=== PATIENT | female | born 1965 | race Caucasian/White ===

== ENCOUNTER 2018-08-25 02:26 | Emergency (ER) | payer BC ==
[2018-08-25 02:38] VITALS: BP 122/85
[2018-08-25] MEDS ORDERED: Sodium Chloride 0.9% 1,000 ML IV ONE (02:49)
[2018-08-25] MEDS ORDERED: Sodium Chloride 0.9% 10 ML Syringe FLUSH PRN (02:49)
[2018-08-25] MEDS ORDERED: Ketorolac 30 MG/ML SDV IVPUSH ONE (02:49)
--- NOTE | 2018-08-25 02:50 | EDM.PDOC ---
ED HPI GENERAL MEDICAL PROBLEM - General Chief Complaint: Genitourinary Problem Stated Complaint: KIDNEY INFECTION [id number] Time Seen by Provider: 08/25/18 02:40 Source of Information: Reports: Patient, RN, RN Notes Reviewed History Limitations: Reports: No Limitations - History of Present Illness INITIAL COMMENTS - FREE TEXT/NARRATIVE: Pt to ER with c/o left flank, back pain, LLQ pain. She admits to urinary symptoms of feeling of needing to urinate and not being able to go. She states she has had kidney stones in the past and this feels different. She also states she has had dark, "thick" urine in the past weeks. She denies fever or chills. Has had nausea without vomiting, but none at this time. Last BM yesterday, normal for her, yet she does feel some pressure as though may need to have a BM again. Onset: Gradual Duration: Getting Worse Location: Reports: Abdomen, Back Quality: Reports: Ache, Pressure, Throbbing Severity: Moderate Improves with: Reports: None Worsens with: Reports: None Associated Symptoms: Reports: Other (urinary urgency) Pelvic Pain Score (Numeric/FACES): 8 - Related Data Allergies Allergy/AdvReac Type Severity Reaction Status Date / Time Penicillins Allergy Anaphylactic Verified 08/25/18 02:30 Shock Sulfa (Sulfonamide Allergy Hives Verified 08/25/18 02:30 Antibiotics) Home Meds: Home Meds L.acidoph,Paracasei, B.lactis [Probiotic] 1 tab PO DAILY 12/27/15 [History] Multivitamin [Multivitamins] 1 cap PO DAILY 12/27/15 [History] Sodium Chloride 0.65% [[place] Nasal [place]] 1 spray JESSICA ASDIRECTED PRN 12/27/15 [ History] Sertraline [Zoloft] 100 mg PO DAILY 08/25/18 [History] Past Medical History Cardiovascular History: Reports: None Respiratory History: Reports: None Other Respiratory History: athletic induced asthma Gastrointestinal History: Reports: None Genitourinary History: Reports: Other (See Below) Other Genitourinary History: History of hematuria. 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 Hx of post depression Musculoskeletal History: Reports: None Neurological History: Reports: Migraines Psychiatric History: Reports: None Other Psychiatric History: Hx of post depression Endocrine/Metabolic History: Reports: None Hematologic History: Reports: None Immunologic History: Reports: None Oncologic (Cancer) History: Reports: None Dermatologic History: Reports: None Other Dermatologic History: MRSA infection (right arm boil and left eye) - Infectious Disease History Infectious Disease History: Reports: Chicken Pox, Shingles - Past Surgical History Head Surgeries/Procedures: Reports: None HEENT Surgical History: Reports: Tonsillectomy, Other (See Below) Musculoskeletal Surgical History: Reports: Other (See Below) Other Musculoskeletal Surgeries/Procedures:: 3 surgerys on left foot Social & Family History - Family History Family Medical History: Noncontributory - Tobacco Use Smoking Status *Q: Current Every Day Smoker Years of Tobacco use: 30 Packs/Tins Daily: 0.5 - Caffeine Use Caffeine Use: Reports: Coffee - Recreational Drug Use Recreational Drug Use: No ED ROS GENERAL - Review of Systems Review Of Systems: ROS reveals no pertinent complaints other than HPI. ED EXAM, RENAL/ - Physical Exam Exam: See Below Exam Limited By: No Limitations General Appearance: Alert, WD/WN, Moderate Distress Eye Exam: Bilateral Eye: EOMI, Normal Inspection Ears: Normal External Exam, Hearing Grossly Normal Nose: Normal Inspection Throat/Mouth: Normal Inspection, Normal Voice, No Airway Compromise Head: Atraumatic, Normocephalic Neck: Normal Inspection, Supple, Non-Tender, Full Range of Motion Respiratory/Chest: No Respiratory Distress, Lungs Clear, Normal Breath Sounds, No Accessory Muscle Use, Chest Non-Tender Cardiovascular: Normal Peripheral Pulses, Regular Rate, Rhythm, No Edema, No Gallop, No JVD, No Murmur, No Rub GI/Abdominal: Normal Bowel Sounds, Soft, Tender (LLQ, RLQ, left flank) (Female) Exam: Deferred Rectal (Female) Exam: Deferred Back Exam: Normal Inspection, Full Range of Motion, CVA Tenderness (L) Extremities: Normal Inspection, Normal Range of Motion, Non-Tender, No Pedal Edema, Normal Capillary Refill Neurological: Alert, Oriented, CN II-XII Intact, Normal Cognition, Normal Gait, Normal Reflexes, No Motor/Sensory Deficits Psychiatric: Normal Affect, Normal Mood Skin Exam: Warm, Dry, Intact, Normal Color, No Rash Lymphatic: No Adenopathy Course - Vital Signs Last Recorded V/S: Last Vital Signs Temp 97.8 F 08/25/18 02:36 Pulse 103 H 08/25/18 02:36 Resp 18 08/25/18 02:36 BP 122/85 08/25/18 02:36 Pulse Ox 99 08/25/18 02:36 - Orders/Labs/Meds Orders: Active Orders 24 hr Category Date Time Status Peripheral IV Care [RC] . DIRECTED Care 08/25/18 02:49 Active Abdomen Pelvis wo Cont [CT] Urgent Exams 08/25/18 03:09 Ordered CULTURE URINE [RM] Routine Lab 08/25/18 02:41 Received Peripheral IV Insertion Adult [OM.PC] Stat Oth 08/25/18 02:49 Ordered Labs: Laboratory Tests 08/25/18 08/25/18 08/25/18 Range/Units 02:41 02:53 02:53 WBC 10.4 H (5.0-10.0) 10^3/uL RBC 4.40 (4.2-5.4) 10^6/uL Hgb 13.8 (12.0-16.0) g/dL Hct 40.5 (37.0-47.0) % MCV 92.0 (80-100) fL MCH 31.4 (27.0-34.0) pg MCHC 34.1 (33.0-35.0) g/dL Plt Count 295 (150-450) 10^3/uL Neut % (Auto) 59.7 (42.2-75.2) % Lymph % (Auto) 27.9 (20.5-50.1) % [place] % (Auto) 10.1 H (2-8) % Eos % (Auto) 1.8 (1.0-3.0) % Baso % (Auto) 0.5 (0.0-1.0) % Sodium 137 (135-145) mmol/L Potassium 3.8 (3.6-5.0) mmol/L Chloride 102 (101-111) mmol/L Carbon Dioxide 24.0 (21.0-31.0) mmol/L Anion Gap 14.8 BUN 16 (7-18) mg/dL Creatinine 0.9 (0.6-1.3) mg/dL Est Cr Clr Drug Dosing 62.42 mL/min Estimated GFR (MDRD) > 60 BUN/Creatinine Ratio 17.77 Glucose 114 H (74-105) mg/dL Calcium 9.5 (8.4-10.2) mg/dl Total Bilirubin 0.5 (0.2-1.0) mg/dL AST 22 (10-42) IU/L ALT 18 (10-60) IU/L Alkaline Phosphatase 60 (42-121) IU/L Total Protein 7.5 (6.7-8.2) g/dl Albumin 4.4 (3.2-5.5) g/dl Globulin 3.1 Albumin/Globulin Ratio 1.42 Urine Color Yellow (YELLOW) Urine Appearance Cloudy (CLEAR) Urine pH 5.5 (5.0-9.0) Ur Specific [place] 1.020 (1.005-1.030) Urine Protein Negative (NEGATIVE) Urine Glucose (UA) Negative (NEGATIVE) Urine Ketones Negative (NEGATIVE) Urine Occult Blood Large H (NEGATIVE) Urine Nitrite Negative (NEGATIVE) Urine Bilirubin Negative (NEGATIVE) Urine Urobilinogen 0.2 (0.2-1.0) mg/dL Ur Leukocyte Esterase Trace H (NEGATIVE) Urine RBC >100 H /HPF Urine WBC 10-20 H (0-5/HPF) /HPF Ur Epithelial Cells Few /HPF Urine Bacteria Few (0-FEW/HPF) /HPF Urine Mucus Few H /LPF Meds: Medications Discontinued Medications Generic Name Dose Route Start Last Admin Trade Name Freq PRN Reason Stop Dose Admin Sodium Chloride 1,000 mls @ 999 mls/hr 08/25/18 02:49 08/25/18 02:55 Normal Saline IV 08/25/18 03:49 999 mls/hr .BOLUS ONE Administration Ketorolac Tromethamine 30 mg 08/25/18 02:49 08/25/18 02:56 Toradol IVPUSH 08/25/18 02:50 30 mg ONETIME ONE Administration Sodium Chloride 10 ml 08/25/18 02:49 08/25/18 02:58 Saline Flush FLUSH 10 ml ASDIRECTED PRN Administration Keep Vein Open - Radiology Interpretation Free Text/Narrative:: CT Abdomen/Pelvis wo contrast: FINDINGS: Lower thorax: No acute findings. ABDOMEN: Liver: Normal. No mass. Gallbladder and bile ducts: Normal. No calcified stones. No ductal dilation. Pancreas: Normal. No ductal dilation. Spleen: Normal. No splenomegaly. Adrenals: Normal. No mass. Kidneys and ureters: Hydronephrosis of the left kidney as well as hydroureter secondary to a 4 mm stone at the left ureterovesical junction Bilateral nonobstructing renal calculi measuring 2-3 mm each Stomach and bowel: Normal. No obstruction. No mucosal thickening. Appendix: No evidence of appendicitis. PELVIS: Bladder: Unremarkable as visualized. Reproductive: Unremarkable as visualized. ABDOMEN and PELVIS: Intraperitoneal space: Normal. No free air. No significant fluid collection. Bones/joints: No acute fracture. No dislocation. Soft tissues: Unremarkable. Vasculature: Normal. No abdominal aortic aneurysm. Lymph nodes: Normal. No enlarged lymph nodes. IMPRESSION: 1. Hydronephrosis of the left kidney as well as hydroureter secondary to a 4 mm stone at the left ureterovesical junction . This is a new finding since the prior study dated 2. Bilateral nonobstructing renal calculi measuring 2-3 mm each Thank you for allowing us to participate in the care of your patient. Dictated and Authenticated by: Mina Mares MD 08/25/2018 3:44 AM Central Time ([place] & [place]) See rad report Departure - Departure Time of Disposition: 04:00 Disposition: Home, Self-Care 01 Condition: Fair Clinical Impression: Nephrolithiasis - Discharge Information *PRESCRIPTION DRUG MONITORING PROGRAM REVIEWED*: No *COPY OF PRESCRIPTION DRUG MONITORING REPORT IN PATIENT NOEL: No Instructions: Renal Colic, [id number], Kidney Stones, [id number]-Coll, Dietary Guidelines to Help Prevent Kidney Stones Forms: ED Department Discharge Additional Instructions: Drink plenty of water May use Ibuprofen as directed for pain Return to the ER if you have an increase in pain again Follow up with your primary care facility for possible urology consult - My Orders Last 24 Hours: My Active Orders 08/25/18 02:41 CULTURE URINE [RM] Routine 08/25/18 02:49 Peripheral IV Care [RC] . DIRECTED Peripheral IV Insertion Adult [OM.PC] Stat 08/25/18 03:09 Abdomen Pelvis wo Cont [CT] Urgent - Assessment/Plan Last 24 Hours: My Active Orders 08/25/18 02:41 CULTURE URINE [RM] Routine 08/25/18 02:49 Peripheral IV Care [RC] . DIRECTED Peripheral IV Insertion Adult [OM.PC] Stat 08/25/18 03:09 Abdomen Pelvis wo Cont [CT] Urgent
[2018-08-25 03:18] LABS: ANION GAP 14.8; CHLORIDE,CL 102 mmol/L (101-111); SODIUM,NA 137 mmol/L (135-145)
== END 2018-08-25 04:10 | disposition home or self-care (01) ==
LOC: DL.ED 02:26
DX: N13.2 Hydronephrosis with renal and ureteral calculous obstruction (principal); F17.210 Nicotine dependence, cigarettes, uncomplicated; Z88.0 Allergy status to penicillin; Z88.2 Allergy status to sulfonamides; Z79.899 Other long term (current) drug therapy
CPT/HCPCS: 36415; 74176; 80053; 81001; 85025; 87086; 96361; 96374; 99284; J1885; J7030

== ENCOUNTER 2019-09-14 08:09 | Emergency (ER) | payer BC ==
[2019-09-14 08:32] VITALS: BP 120/81; PULSE 91
--- NOTE | 2019-09-14 08:37 | EDM.PDOC ---
<Kenyon Villela - Last Filed: 09/14/19 08:32> ED HPI GENERAL MEDICAL PROBLEM - General Chief Complaint: Abdominal Pain Stated Complaint: SEVERE STOMACH PAIN Time Seen by Provider: 09/14/19 08:32 Source of Information: Reports: Patient, RN, RN Notes Reviewed History Limitations: Reports: No Limitations - History of Present Illness INITIAL COMMENTS - FREE TEXT/NARRATIVE: Pt here with severe lower abdominal pain and N/V that began around 4 am this morning. Pt states she had loose stools for the last 4 days prior to the N/V. Pt denies diarrhea at this time. Pt with history of diverticulosis. States kidney stone history as well. Abd pain 10/10 in lower quadrants. Pt denies burning with urination. Patient has not had this pain before and states it is different from the pain she had with a kidney stone and she has never had a flare of diverticulitis before. Patient is in quite a bit of distress and sitting on the edge of the bed bending over from the pain. Onset: Today Duration: Constant Location: Reports: Abdomen, Pelvis Quality: Reports: Stabbing Severity: Severe Improves with: Reports: None Worsens with: Reports: None Associated Symptoms: Reports: Fever/Chills, Loss of Appetite, Nausea/Vomiting. 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: Other (see below) Other Treatments GAS APPLIANCE REPAIRER: Rolaids at 0300 Lower Abdomen Pain Score (Numeric/FACES): 10 - Related Data Allergies Allergy/AdvReac Type Severity Reaction Status Date / Time Penicillins Allergy Anaphylactic Verified 08/25/18 02:30 Shock Sulfa (Sulfonamide Allergy Hives Verified 08/25/18 02:30 Antibiotics) Home Meds: Home Meds L.acidoph,Paracasei, B.lactis [Probiotic] 1 tab PO DAILY 12/27/15 [History] Multivitamin [Multivitamins] 1 cap PO DAILY 12/27/15 [History] Sodium Chloride 0.65% [[place] Nasal [place]] 1 spray JESSICA ASDIRECTED PRN 12/27/15 [ History] Sertraline [Zoloft] 100 mg PO DAILY 08/25/18 [History] Past Medical History Cardiovascular History: Reports: None Respiratory History: Reports: None Other Respiratory History: athletic induced asthma Gastrointestinal History: Reports: None Genitourinary History: Reports: Other (See Below) Other Genitourinary History: History of hematuria. 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 Hx of post depression Musculoskeletal History: Reports: None Neurological History: Reports: Migraines Psychiatric History: Reports: None Other Psychiatric History: Hx of post depression Endocrine/Metabolic History: Reports: None Hematologic History: Reports: None Immunologic History: Reports: None Oncologic (Cancer) History: Reports: None Dermatologic History: Reports: None Other Dermatologic History: MRSA infection (right arm boil and left eye) - Infectious Disease History Infectious Disease History: Reports: Chicken Pox, Shingles - Past Surgical History Head Surgeries/Procedures: Reports: None HEENT Surgical History: Reports: Tonsillectomy, Other (See Below) Musculoskeletal Surgical History: Reports: Other (See Below) Other Musculoskeletal Surgeries/Procedures:: 3 surgerys on left foot Social & Family History - Family History Family Medical History: Noncontributory - Caffeine Use Caffeine Use: Reports: Coffee ED ROS GENERAL - Review of Systems Review Of Systems: See Below Constitutional: Reports: Decreased Appetite. Denies: Fever, Chills HEENT: Reports: No Symptoms Respiratory: Reports: No Symptoms Cardiovascular: Reports: No Symptoms Endocrine: Reports: No Symptoms GI/Abdominal: Reports: Abdominal Pain (lower quadrants), Diarrhea, Decreased Appetite, Nausea, Vomiting. Denies: Distension : Reports: No Symptoms Musculoskeletal: Reports: No Symptoms Skin: Reports: No Symptoms Neurological: Reports: No Symptoms Psychiatric: Reports: No Symptoms Hematologic/Lymphatic: Reports: No Symptoms Immunologic: Reports: No Symptoms ED EXAM, GI/ABD - Physical Exam Exam: See Below Exam Limited By: No Limitations General Appearance: Alert, Anxious, Moderate Distress Respiratory/Chest: No Respiratory Distress, Lungs Clear, Normal Breath Sounds, No Accessory Muscle Use, Chest Non-Tender Cardiovascular: Normal Peripheral Pulses, Regular Rate, Rhythm, No Edema, No Gallop, No JVD, No Murmur, No Rub GI/Abdominal Exam: Soft, No Distention, Guarding, Tender, Abnormal Bowel Sounds (hyperactive). No: Distended (Female) Exam: Deferred Rectal (Female) Exam: Deferred Back Exam: Normal Inspection, Full Range of Motion, NT Course - Vital Signs Last Recorded V/S: Last Vital Signs Temp 36.6 C 09/14/19 08:25 Pulse 91 09/14/19 08:25 Resp 18 09/14/19 08:25 BP 120/81 09/14/19 08:25 Pulse Ox 100 09/14/19 08:25 - Orders/Labs/Meds Orders: Active Orders 24 hr Category Date Time Status Abdomen Pelvis w Cont [CT] Urgent Exams 09/14/19 09:22 Ordered HYDROmorphone [Dilaudid] Med 09/14/19 11:04 Once 0.5 mg IVPUSH ONETIME ONE Labs: Laboratory Tests 09/14/19 09/14/19 09/14/19 Range/Units 08:28 08:35 08:35 WBC 13.3 H (5.0-10.0) 10^3/uL RBC 4.55 (4.2-5.4) 10^6/uL Hgb 14.3 (12.0-16.0) g/dL Hct 42.3 (37.0-47.0) % MCV 93.0 (80-100) fL MCH 31.4 (27.0-34.0) pg MCHC 33.8 (33.0-35.0) g/dL Plt Count 313 (150-450) 10^3/uL Neut % (Auto) 72.5 (42.2-75.2) % Lymph % (Auto) 17.7 L (20.5-50.1) % [place] % (Auto) 7.9 (2-8) % Eos % (Auto) 1.4 (1.0-3.0) % Baso % (Auto) 0.5 (0.0-1.0) % Sodium 138 (135-145) mmol/L Potassium 4.1 (3.6-5.0) mmol/L Chloride 103 (101-111) mmol/L Carbon Dioxide 23.0 (21.0-31.0) mmol/L Anion Gap 16.1 BUN 15 (7-18) mg/dL Creatinine 1.0 (0.6-1.3) mg/dL Est Cr Clr Drug Dosing 55.54 mL/min Estimated GFR (MDRD) 58 BUN/Creatinine Ratio 15.00 Glucose 111 H (74-105) mg/dL Calcium 9.6 (8.4-10.2) mg/dl Total Bilirubin 0.4 (0.2-1.0) mg/dL AST 18 (10-42) IU/L ALT 16 (10-60) IU/L Alkaline Phosphatase 67 (42-121) IU/L Total Protein 7.4 (6.7-8.2) g/dl Albumin 4.5 (3.2-5.5) g/dl Globulin 2.9 Albumin/Globulin Ratio 1.55 Amylase 41 (28-100) U/L Lipase 35 (22-51) U/L Urine Color Yellow (YELLOW) Urine Appearance Slightly cloudy (CLEAR) Urine pH 7.0 (5.0-9.0) Ur Specific [place] 1.025 (1.005-1.030) Urine Protein Negative (NEGATIVE) Urine Glucose (UA) Negative (NEGATIVE) Urine Ketones Negative (NEGATIVE) Urine Occult Blood Moderate H (NEGATIVE) Urine Nitrite Negative (NEGATIVE) Urine Bilirubin Negative (NEGATIVE) Urine Urobilinogen 0.2 (0.2-1.0) mg/dL Ur Leukocyte Esterase Negative (NEGATIVE) Urine RBC 5-10 H /HPF Urine WBC 0-5 (0-5/HPF) /HPF Ur Epithelial Cells Few (NOT SEEN) /HPF Urine Bacteria Few (0-FEW/HPF) /HPF Urine Mucus Rare (NOT SEEN) /LPF Meds: Medications Discontinued Medications Generic Name Dose Route Start Last Admin Trade Name Freq PRN Reason Stop Dose Admin Hydromorphone HCl 0.5 mg 09/14/19 09:15 09/14/19 09:20 Dilaudid IVPUSH 09/14/19 09:16 0.5 mg ONETIME ONE Administration Sodium Chloride 1,000 mls @ 999 mls/hr 09/14/19 08:28 09/14/19 08:40 Normal Saline IV 09/14/19 09:28 999 mls/hr .BOLUS ONE Administration Iopamidol 100 ml 09/14/19 09:22 09/14/19 09:37 Isovue-300 (61%) IVPUSH 09/14/19 09:23 100 ml ONETIME ONE Administration Morphine Sulfate 2 mg 09/14/19 08:28 09/14/19 08:39 Morphine IVPUSH 09/14/19 08:29 2 mg ONETIME ONE Administration Morphine Sulfate 2 mg 09/14/19 08:52 09/14/19 09:04 Morphine IVPUSH 09/14/19 08:53 2 mg ONETIME ONE Administration Ondansetron HCl 4 mg 09/14/19 08:30 09/14/19 08:39 Zofran IVPUSH 09/14/19 08:31 4 mg ONETIME ONE Administration Departure - Departure Disposition: DC/Tfer to [facility] 02 Clinical Impression: Acute appendicitis Qualifiers: Acute appendicitis type: with localized peritonitis Appendicitis gangrene presence: unspecified whether gangrene present Appendicitis perforation presence : without perforation Appendicitis abscess presence: unspecified whether abscess present Qualified Code(s): K35.30 - Acute appendicitis with localized peritonitis, without perforation or gangrene - Discharge Information Forms: Interfacility Transfer EMTALA Care Plan Goals: Discussed the patient's history, examination, lab and CT results with Dr. Gary (through [facility]). Dr. Gary accepted the patient for continued evaluation and further management at [facility] in [place]. The patient will be transported by [facility]. Sepsis Event Note - Evaluation Sepsis Screening Result: No Definite Risk - Focused Exam Vital Signs: Vital Signs Temp Pulse Resp BP Pulse Ox 09/14/19 08:25 36.6 C 91 18 120/81 100 Date Exam was Performed: 09/14/19 Time Exam was Performed: 08:32 - My Orders Last 24 Hours: My Active Orders 09/14/19 09:22 Abdomen Pelvis w Cont [CT] Urgent 09/14/19 11:04 HYDROmorphone [Dilaudid] 0.5 mg IVPUSH ONETIME ONE - Assessment/Plan Last 24 Hours: My Active Orders 09/14/19 09:22 Abdomen Pelvis w Cont [CT] Urgent 09/14/19 11:04 HYDROmorphone [Dilaudid] 0.5 mg IVPUSH ONETIME ONE <Rainer Cedillo M - Last Filed: 09/14/19 11:09> Course - Re-Assessments/Exams Free Text/Narrative Re-Assessment/Exam: 09/14/19 11:05 I have examined the patient. I have discussed findings and treatment plan with the student. I agree with the assessment and plan in the following student's note. Departure - Departure Time of Disposition: 11:05 Condition: Fair - Discharge Information *PRESCRIPTION DRUG MONITORING PROGRAM REVIEWED*: Not Applicable *COPY OF PRESCRIPTION DRUG MONITORING REPORT IN PATIENT NOEL: Not Applicable Sepsis Event Note - Focused Exam Date Exam was Performed: 09/14/19 Time Exam was Performed: 11:04
[2019-09-14] MEDS: Morphine 2 MG/ML Syringe IVPUSH ONE ×2 (08:39→09:04)
[2019-09-14] MEDS: Ondansetron 4 MG/2 ML SDV IVPUSH ONE (08:39)
[2019-09-14] MEDS: Sodium Chloride 0.9% 1,000 ML IV ONE (08:40)
[2019-09-14 09:12] LABS: ANION GAP 16.1
[2019-09-14] MEDS: HYDROmorphone 0.5 MG/0.5 ML Syringe IVPUSH ONE ×2 (09:20→11:26)
[2019-09-14] MEDS: Iopamidol 612 MG/ML 100 ML Bottle IVPUSH ONE (09:37)
== END 2019-09-14 11:51 ==
LOC: DL.ED 08:09
DX: K35.30 Acute appendicitis with localized peritonitis, without perforation or gangrene (principal); Z88.0 Allergy status to penicillin; Z88.2 Allergy status to sulfonamides
CPT/HCPCS: 36415; 74177; 80053; 81001; 82150; 83690; 85025; 96361; 96374; 96375; 96376; 99285-25; J1170; J2270; J2405; J7030; Q9967

== ENCOUNTER 2020-12-24 11:50 | Emergency (ER) | payer BC ==
[2020-12-24 12:12] VITALS: BP 141/78; PULSE 91
[2020-12-24] MEDS ORDERED: Ketorolac 30 MG/ML SDV IVPUSH ONE (12:20)
[2020-12-24] MEDS ORDERED: Ondansetron 4 MG/2 ML SDV IV ONE (12:20)
[2020-12-24] MEDS: Sodium Chloride 0.9% 10 ML Syringe FLUSH PRN ×2 (12:29→12:35)
--- NOTE | 2020-12-24 12:40 | EDM.PDOC ---
"ED HPI GENERAL MEDICAL PROBLEM - General Chief Complaint: Genitourinary Problem Stated Complaint: KIDNEY STONES Time Seen by Provider: 12/24/20 12:10 Source of Information: Reports: Patient, RN, RN Notes Reviewed History Limitations: Reports: No Limitations - History of Present Illness INITIAL COMMENTS - FREE TEXT/NARRATIVE: Pt presents to ER from home by POV with c/o sudden onset of right flank pain last week. The pain was severe, but only lasted a few hours, then went away without intervention. Since the onset, the pain has returned several times and has been severe enough to cause nausea and vomiting at times. Yesterday the pain began radiating to the right lower abdomen and groin area. Pt has noticed occasional blood in her urine over the past few days. Pt rates the pain 7/10 currently. Nothing alleviates or aggravates the pain. Pt states this feels similar to a kidney stone that she had a few years ago on the left side. Onset: Sudden Duration: Intermittent, Recurring Location: Reports: Abdomen, Back Quality: Reports: Ache Severity: Severe Improves with: Reports: None Worsens with: Reports: None Associated Symptoms: Reports: No Other Symptoms Treatments RESEARCH PHARMACIST: Reports: NSAIDS Right Flank Pain Score (Numeric/FACES): 7 - Related Data Allergies Allergy/AdvReac Type Severity Reaction Status Date / Time Penicillins Allergy Anaphylactic Verified 12/24/20 12:12 Shock Sulfa (Sulfonamide Allergy Hives Verified 12/24/20 12:12 Antibiotics) Home Meds: Home Meds L.acidoph,Paracasei, B.lactis [Probiotic] 1 tab PO DAILY 12/27/15 [History] Multivitamin [Multivitamins] 1 cap PO DAILY 12/27/15 [History] Sodium Chloride 0.65% [[place]al [place]] 1 spray JESSICA ASDIRECTED PRN 12/27/15 [History] Sertraline [Zoloft] 100 mg PO DAILY 08/25/18 [History] Past Medical History HEENT History: Reports: Impaired Vision Cardiovascular History: Reports: None Respiratory History: Reports: None Other Respiratory History: athletic induced asthma Gastrointestinal History: Reports: Diverticulosis Genitourinary History: Reports: Other (See Below) Other Genitourinary History: History of hematuria. hx of kidney stones HOTEL MAID History: Reports: Other (See Below) Other HOTEL MAID History: PMDD (premenstrual dysphoric disorder) 1995. Hx of post depression Musculoskeletal History: Reports: None Neurological History: Reports: Migraines Psychiatric History: Reports: None Other Psychiatric History: Hx of post depression Endocrine/Metabolic History: Reports: None Hematologic History: Reports: None Immunologic History: Reports: None Oncologic (Cancer) History: Reports: None Dermatologic History: Reports: None Other Dermatologic History: MRSA infection (right arm boil and left eye) - Infectious Disease History Infectious Disease History: Reports: Chicken Pox, Shingles - Past Surgical History Head Surgeries/Procedures: Reports: None HEENT Surgical History: Reports: Tonsillectomy, Other (See Below) Other HEENT Surgeries/Procedures: Facial reconstruction/Temporomandibular joint. Respiratory Surgical History: Reports: None GI Surgical History: Reports: None Musculoskeletal Surgical History: Reports: Other (See Below) Other Musculoskeletal Surgeries/Procedures:: 3 surgerys on left foot Social & Family History - Family History Family Medical History: No Pertinent Family History - Tobacco Use Tobacco Use Status *Q: Current Every Day Tobacco User Years of Tobacco use: 39 Packs/Tins Daily: 1 Second Hand Smoke Exposure: No - Caffeine Use Caffeine Use: Reports: Coffee, Soda - Recreational Drug Use Recreational Drug Use: No - Living Situation & Occupation Living situation: Reports: with Family ED ROS GENERAL - Review of Systems Review Of Systems: Comprehensive ROS is negative, except as noted in HPI. ED EXAM, RENAL/ - Physical Exam Exam: See Below Exam Limited By: No Limitations General Appearance: Alert, WD/WN, No Apparent Distress Throat/Mouth: Normal Voice, No Airway Compromise Neck: Normal Inspection Respiratory/Chest: No Respiratory Distress, Lungs Clear Cardiovascular: Regular Rate, Rhythm GI/Abdominal: Normal Bowel Sounds, Soft, Non-Tender. No: Guarding, Rigid, Rebound Back Exam: Full Range of Motion. No: CVA Tenderness (L), CVA Tenderness (R), Vertebral Tenderness Extremities: Normal Inspection Neurological: Alert, Oriented, No Motor/Sensory Deficits Psychiatric: Normal Mood Skin Exam: Warm, Dry, Intact, Normal Color, No Rash Course - Vital Signs Last Recorded V/S: Last Vital Signs Temp 96.2 F L 12/24/20 12:01 Pulse 91 12/24/20 12:01 Resp 16 12/24/20 12:01 BP 141/78 H 12/24/20 12:01 Pulse Ox 99 05/30/21 12:01 - Orders/Labs/Meds Orders: Active Orders 24 hr Category Date Time Status Abdomen Pelvis wo Cont [CT] Stat Exams 12/24/20 12:20 Ordered CULTURE URINE [RM] Stat Lab 12/24/20 12:00 Received Sodium Chloride 0.9% [Saline Flush] Med 12/24/20 12:20 Active 10 ml FLUSH ASDIRECTED PRN Peripheral IV Insertion Adult [OM.PC] Stat Oth 12/24/20 12:19 Ordered Medication Orders Sodium Chloride (Sodium Chloride 0.9% 10 Ml Syringe) 10 ml FLUSH ASDIRECTED PRN PRN Reason: Keep Vein Open Last Admin: 12/24/20 12:35 Dose: 10 ml Documented by: Admin: 12/24/20 12:29 Dose: 10 ml Documented by: MORE Labs: Laboratory Tests 12/24/20 Range/Units 12:00 Urine Color Yellow (YELLOW) Urine Appearance Cloudy (CLEAR) Urine pH 5.5 (5.0-9.0) Ur Specific [place] >= 1.030 (1.005-1.030) Urine Protein Negative (NEGATIVE) Urine Glucose (UA) Negative (NEGATIVE) Urine Ketones Negative (NEGATIVE) Urine Occult Blood Moderate H (NEGATIVE) Urine Nitrite Negative (NEGATIVE) Urine Bilirubin Negative (NEGATIVE) Urine Urobilinogen 0.2 (0.2-1.0) mg/dL Ur Leukocyte Esterase Trace H (NEGATIVE) Urine RBC >100 H /HPF Urine WBC >100 H (0-5/HPF) /HPF Ur Epithelial Cells Moderate H (NOT SEEN) /HPF Amorphous Sediment Moderate H (NOT SEEN) /HPF Urine Bacteria Few (0-FEW/HPF) /HPF Urine Mucus Few H (NOT SEEN) /LPF Meds: Medications Generic Name Dose Route Start Last Admin Trade Name Freq PRN Reason Stop Dose Admin Sodium Chloride 10 ml 12/24/20 12:20 12/24/20 12:35 Sodium Chloride 0.9% 10 Ml Syringe FLUSH 10 ml ASDIRECTED PRN Administration Keep Vein Open Discontinued Medications Generic Name Dose Route Start Last Admin Trade Name Freq PRN Reason Stop Dose Admin Ketorolac Tromethamine 30 mg 12/24/20 12:20 12/24/20 12:33 Ketorolac 30 Mg/Ml Sdv IVPUSH 12/24/20 12:21 30 mg ONETIME ONE Administration Ondansetron HCl 4 mg 12/24/20 12:20 12/24/20 12:30 Ondansetron 4 Mg/2 Ml Sdv IV 12/24/20 12:21 4 mg ONETIME ONE Administration - Radiology Interpretation Free Text/Narrative:: [facility] [place] [facility] Final Radiology Report Call: [phone] assistance Online chat: [email or web address] Name: ADRIANNA BANUELOS Age: 55Years F Date: 12/24/2020 SSN: -- : 1965 Study: CT ABDOMEN PELVIS WO CONT Requesting Physician: JAYNE KEENE Images: [id number] Addl Studies: Provided Clinical History: Rt flank pain, hematuria, suspected kidney stone Contrast: Without Contrast Medium: Contrast Amount: Contrast Method: Page 1 of 2 PROCEDURE INFORMATION: Exam: CT Abdomen And Pelvis Without Contrast Exam date and time: 12/24/2020 12:57 PM Age: 55 years old Clinical indication: Pain; Other: RT flank; Additional info: RT flank pain, hematuria, suspected kidney stone TECHNIQUE: Imaging protocol: Computed tomography of the abdomen and pelvis without contrast. Radiation optimization: All CT scans at this facility use at least one of these dose optimization techniques: automated exposure control; mA and/or kV adjustment per patient size (includes targeted exams where dose is matched to clinical indication); or iterative reconstruction. COMPARISON: No relevant prior studies available. FINDINGS: Liver: Normal. No mass. Gallbladder and bile ducts: Normal. No calcified stones. No ductal dilation. Pancreas: Normal. No ductal dilation. Spleen: Normal. No splenomegaly. Adrenal glands: Normal. No mass. Kidneys and ureters: Right hydronephrosis and hydroureter secondary to ureteral oval distal right pelvic ureteral 5 mm x 3 mm calculus approximately 6 cm from the ureteropelvic junction. Right perirenal stranding. Left 3 mm mm left lower pole nephrolith. No left hydronephrosis. Stomach and bowel: Unremarkable. No obstruction. No mucosal thickening. Diverticulosis. No diverticulitis. Appendix: Inferior metallic sutures compatible with appendectomy. Intraperitoneal space: Unremarkable. No free air. No significant fluid collection. Vasculature: Unremarkable. No abdominal aortic aneurysm. ADRIANNA BANUELOS | Final Radiology Report CONFIDENTIALITY STATEMENT This report is intended only for use by the referring physician, and only in accordance with law. If you received this in error, call [phone]. Page 2 of 2 Lymph nodes: Unremarkable. No enlarged lymph nodes. Urinary bladder: Unremarkable as visualized. Reproductive: Unremarkable as visualized. Bones/joints: L3-S1 moderate degenerative disc disease with vacuum disc changes and marginal spondylosis. No acute findings. Soft tissues: Unremarkable. IMPRESSION: 1. Right obstructive uropathy secondary to 5 mm x 3 mm distal pelvic ureteral calculus. Right perirenal stranding. 2. Left lower pole nonobstructing nephrolith. 3. Chronic findings include diverticulosis, appendectomy and moderate lumbar degenerative disc disease Thank you for allowing us to participate in the care of your patient. Dictated and Authenticated by: Lilli Boogie MD 12/24/2020 1:41 PM Central Time ([place] & [place]) Departure - Departure Time of Disposition: 13:52 Disposition: Home, Self-Care 01 Condition: Good Clinical Impression: Kidney stone on right side - Discharge Information *PRESCRIPTION DRUG MONITORING PROGRAM REVIEWED*: Not Applicable *COPY OF PRESCRIPTION DRUG MONITORING REPORT IN PATIENT NOEL: Not Applicable Instructions: Kidney Stones, Renal Colic Forms: ED Department Discharge Additional Instructions: Rx: Flomax 0.4mg Rx: Zofran 4mg Rx: Percocet (Oxycodone APAP) 5mg/325mg *Do not drive while under the influence of this medication. Drink plenty of water. Use an over the counter stool softener to prevent constipation while taking Percocet for severe pain. Follow up in clinic with your primary doctor if you have not passed the stone in the next 5 to 7 days. Return to the ER if you develop a fever, are unable to pass any urine, or if the pain is uncontrolled. Sepsis Event Note (ED) - Evaluation Sepsis Screening Result: No Definite Risk - Focused Exam Vital Signs: Vital Signs Temp Pulse Resp BP Pulse Ox 12/24/20 12:01 96.2 F L 91 16 141/78 H 99 - My Orders Last 24 Hours: My Active Orders 12/24/20 12:00 CULTURE URINE [RM] Stat 12/24/20 12:19 Peripheral IV Insertion Adult [OM.PC] Stat 12/24/20 12:20 Abdomen Pelvis wo Cont [CT] Stat Sodium Chloride 0.9% [Saline Flush] 10 ml FLUSH ASDIRECTED PRN - Assessment/Plan Last 24 Hours: My Active Orders 12/24/20 12:00 CULTURE URINE [RM] Stat 12/24/20 12:19 Peripheral IV Insertion Adult [OM.PC] Stat 12/24/20 12:20 Abdomen Pelvis wo Cont [CT] Stat Sodium Chloride 0.9% [Saline Flush] 10 ml FLUSH ASDIRECTED PRN"
--- NOTE | 2020-12-24 14:06 | CT ---
PROCEDURE INFORMATION: Exam: CT Abdomen And Pelvis Without Contrast Exam date and time: 12/24/2020 12:57 PM Age: 55 years old Clinical indication: Pain; Other: RT flank; Additional info: RT flank pain, hematuria, suspected kidney stone TECHNIQUE: Imaging protocol: Computed tomography of the abdomen and pelvis without contrast. Radiation optimization: All CT scans at this facility use at least one of these dose optimization techniques: automated exposure control; mA and/or kV adjustment per patient size (includes targeted exams where dose is matched to clinical indication); or iterative reconstruction. COMPARISON: No relevant prior studies available. FINDINGS: Liver: Normal. No mass. Gallbladder and bile ducts: Normal. No calcified stones. No ductal dilation. Pancreas: Normal. No ductal dilation. Spleen: Normal. No splenomegaly. Adrenal glands: Normal. No mass. Kidneys and ureters: Right hydronephrosis and hydroureter secondary to ureteral oval distal right pelvic ureteral 5 mm x 3 mm calculus approximately 6 cm from the ureteropelvic junction. Right perirenal stranding. Left 3 mm mm left lower pole nephrolith. No left hydronephrosis. Stomach and bowel: Unremarkable. No obstruction. No mucosal thickening. Diverticulosis. No diverticulitis. Appendix: Inferior metallic sutures compatible with appendectomy. Intraperitoneal space: Unremarkable. No free air. No significant fluid collection. Vasculature: Unremarkable. No abdominal aortic aneurysm. Lymph nodes: Unremarkable. No enlarged lymph nodes. Urinary bladder: Unremarkable as visualized. Reproductive: Unremarkable as visualized. Bones/joints: L3-S1 moderate degenerative disc disease with vacuum disc changes and marginal spondylosis. No acute findings. Soft tissues: Unremarkable. IMPRESSION: 1. Right obstructive uropathy secondary to 5 mm x 3 mm distal pelvic ureteral calculus. Right perirenal stranding. 2. Left lower pole nonobstructing nephrolith. 3. Chronic findings include diverticulosis, appendectomy and moderate lumbar degenerative disc disease
== END 2020-12-24 13:40 | disposition home or self-care (01) ==
LOC: DL.ED 11:50
DX: N13.2 Hydronephrosis with renal and ureteral calculous obstruction (principal); Z72.0 Tobacco use; Z88.0 Allergy status to penicillin; Z88.2 Allergy status to sulfonamides
CPT/HCPCS: 74176; 81001; 87086; 96374; 96375; 99284; 99284-25; J1885; J2405